=== PATIENT | male | born 1995 | race Caucasian/White ===

== ENCOUNTER 2017-08-08 23:02 | Emergency (ER) | payer BC, OTHER ==
[~2017-08-08] VITALS: Ht 190.5 cm; Wt 99.8 kg
[2017-08-09] LABS: URINE BILIRUBIN NEGATIVE (Negative); URINE BLOOD NEGATIVE (Negative); URINE CLARITY CLEAR; URINE COLOR YELLOW; URINE GLUCOSE-RANDOM NEGATIVE (Negative); URINE KETONES 1+ (Negative); URINE LEUKOCYTES-REFLEX NEGATIVE (Negative); URINE NITRITE-REFLEX NEGATIVE (Negative); URINE PROTEIN NEGATIVE (Negative); URINE SPECIFIC GRAVITY >= 1.030 (1.005-1.030); URINE UROBILINOGEN 0.2 E.U./dl (0.2-1.0)
[2017-08-09] MEDS ORDERED: NAPROSYN500 MG PO (00:32)
[2017-08-09 01:03] VITALS: BP 145/59
== END 2017-08-09 01:05 | disposition home or self-care (01) ==
LOC: M.ERS 23:02
PROVIDERS: Personal Emergency Response Attendant
DX: N50.811 Right testicular pain (principal); N50.3 Cyst of epididymis; N43.3 Hydrocele, unspecified; I86.1 Scrotal varices; Z88.2 Allergy status to sulfonamides